=== PATIENT | male | born 1960 ===

== ENCOUNTER 2018-12-20 10:23 | Outpatient (REF) | payer MEDICAID, SELFPAY ==
[2018-12-20 13:07] LABS: HCT 44.4 % (40.0-50.0); HGB 14.4 g/dL (13.5-17.5); Mean Corp. HGB Concentration 32.4 g/dL (32.0-36.0); Mean Corpuscular Hemoglobin 31.1 pg (27.0-33.0); Mean Corpuscular Volume 95.9 fL (80-95); Mean Platelet Volume 9.2 fL (8.0-11.0); Platelet Count 372 x1000/uL (130-400); RBC 4.63 m/cumm (4.50-6.00); RBC Distribution Width 14.1 % (11.8-14.1); White Blood Cell Count 9.44 k/cumm (4.4-10.8)
[2018-12-20 13:46] LABS: ALT 55 U/L (12-78); AST 37 U/L (15-37); Albumin 3.7 g/dL (3.4-5.0); Alkaline Phosphatase 113 U/L (46-116); Anion Gap 5.6 mmol/L (3-11); BUN 15 mg/dL (7-18); Bilirubin, Total 0.3 mg/dL (0.2-1.0); CO2 30.4 mmol/L (21.0-32.0); CREATININE 0.99 mg/dL (0.70-1.30); Chloride 104 mmol/L (98-107); Glucose 100 mg/dL (70-100); Sodium 140 mmol/L (136-145); TSH (W/Ref FT4) 0.64 uIU/mL (0.36-3.74); Total Protein 7.4 g/dL (6.4-8.2); Vitamin B12 573 pg/mL (193-986)
[2018-12-20 13:52] LABS: Calcium 8.5 mg/dL (8.5-10.1)
[2018-12-22 04:42] LABS: Vitamin D 25 Total 31.3 ng/ml (30-100)
== END 2018-12-20 10:43 ==
LOC: NCHCN 10:23
PROVIDERS: PCP Nurse Practitioner Family; Visit Provider Nurse Practitioner Family
DX: B19.20 Unspecified viral hepatitis C without hepatic coma (principal); Z86.59 Personal history of other mental and behavioral disorders; R45.4 Irritability and anger; R41.89 Other symptoms and signs involving cognitive functions and awareness; R45.851 Suicidal ideations
CPT/HCPCS: 80053; 82306; 85027; 82607; 84443

== ENCOUNTER 2018-12-27 15:33 | Outpatient (REF) | payer MEDICAID, SELFPAY ==
[2018-12-27 21:45] LABS: Hemoglobin A1C 5.6 % (4.5-6.2)
[2018-12-29 10:53] LABS: Hepatitis A Antibody IgM Negative (NEGAT); Hepatitis B Core Antibody Negative (NEGAT); Hepatitis B surface Ag Negative (NEGAT); Hepatitis C Ab w Rflx HCV PCR Reactive (NEGAT)
== END 2018-12-27 15:53 ==
LOC: NCHCN 15:33
PROVIDERS: PCP Nurse Practitioner Family; Visit Provider Nurse Practitioner Family
DX: R35.0 Frequency of micturition (principal); R63.1 Polydipsia; B19.20 Unspecified viral hepatitis C without hepatic coma
CPT/HCPCS: 86704; 86709; 86803; 87340; 83036; 87522

== ENCOUNTER 2019-02-01 13:22 | Outpatient (REF) | payer MEDICAID, SELFPAY ==
[2019-02-01 14:26] LABS: Calculated LDL 109 mg/dL; Cholesterol 162 mg/dL (50-200); HDL Cholesterol 41 mg/dL (40-60); Triglyceride 61 mg/dL (30-150)
[2019-02-02 09:54] LABS: PSA, Screening 1.6 ng/ml (0-3.5)
== END 2019-02-01 13:42 ==
LOC: NCHCN 13:22
PROVIDERS: PCP Nurse Practitioner Family; Visit Provider Specialist/Technologist Athletic Trainer
DX: Z13.220 Encounter for screening for lipoid disorders (principal); Z12.5 Encounter for screening for malignant neoplasm of prostate; Z00.00 Encounter for general adult medical examination without abnormal findings
CPT/HCPCS: 80061; 84153

== ENCOUNTER 2019-06-20 13:08 | Outpatient (REF) | payer MEDICAID, SELFPAY ==
[2019-06-20 22:05] LABS: C-Reactive Protein 0.28 mg/dL (0.0-0.3)
[2019-06-20 22:35] LABS: ESR 11 mm/hr (1-20)
[2019-06-22 09:10] LABS: Cyclic Citrullinated Peptide <2.5 U/mL (<5.0)
[2019-06-22 14:11] LABS: Rheumatoid Factor <8.6 IU/mL (<12.0)
[2019-06-22 16:20] LABS: ANA Interpretation Positive (Negative); ANA Titer Pattern 1:80 Speckled
[2019-06-22 18:40] LABS: Myeloperoxidase Ab IgG <0.2 U; Proteinase 3 Ab (PR3) <0.2 U
== END 2019-06-20 13:28 ==
LOC: NCHCN 13:08
PROVIDERS: PCP Nurse Practitioner Family; Visit Provider Specialist/Technologist Athletic Trainer
DX: M25.50 Pain in unspecified joint (principal)
CPT/HCPCS: 85652; 86200; 83516; 86038; 86140; 86431

== ENCOUNTER 2020-05-31 17:44 | Outpatient (REF) | payer MEDICAID, SELFPAY ==
[2020-06-03 14:08] LABS: COVID-19 RT-PCR UVMMC Result Negative (Negative)
== END 2020-05-31 18:04 ==
LOC: NCHCN 17:44
PROVIDERS: PCP Nurse Practitioner Family; Visit Provider Nurse Practitioner Family
DX: R05 Cough (principal)
CPT/HCPCS: U0003